=== PATIENT | female | born 2000 | race Caucasian/White ===

== ENCOUNTER 2021-11-01 06:26 | Inpatient (IN) ==
[2021-11-01] MEDS ORDERED: D5 1/2 NS 1,000 ML 1,000 ML IV ONE ×2 (06:38→19:10)
[2021-11-01] MEDS ORDERED: BETADINE SOLN ONE (06:38)
[2021-11-01] MEDS ORDERED: PITOCIN ONE (06:38)
[2021-11-01] MEDS ORDERED: D5 1/2 NS 1,000 mL + PITOCIN 20 UNITS/L IV 20 UNITS/1,000 ML BAG IV ONE (06:40)
[2021-11-01] MEDS ORDERED: D5 LR + PITOCIN 10 UNITS/L 10 UNITS/1,000 ML BAG IV ONE (06:40)
[2021-11-01] MEDS ORDERED: MORPHINE SULFATE INJ 2 MG INJ IVP PRN (06:48)
[2021-11-01] MEDS ORDERED: PITOCIN IVP ONE (06:48)
[2021-11-01] MEDS ORDERED: D5 LR + PITOCIN 10 UNITS/L 10 UNITS/1,000 ML BAG IV PRN (06:48)
[2021-11-01] MEDS ORDERED: REGLAN INJ 10 MG VIAL IVP PRN (06:48)
[2021-11-01] MEDS ORDERED: PHENERGAN INJ 25 MG IM PRN ×2 (06:48→21:28)
[2021-11-01] MEDS ORDERED: NUBAIN INJ 200 MG VIAL MULTIDOSE IVP PRN (06:48)
[2021-11-01] MEDS: D5 1/2 NS 1,000 ML 1,000 ML IV SCH ×2 (06:50→19:13)
--- NOTE | 2021-11-01 07:23 | DR.OB ---
OB Quick Note - Assessment/Plan Assessment/Plan: L&D 6:55am S-No complaint. O-Afebrile,VSS [id number] with good LTV, +accel, no decel. CTX=occasional, mild CVX=2cm/50%/0/VTX AROM with clear fluid. IUPC and FSE placed. A-IUP at 39 0/7 weeks for induction CHTN-stable off meds. P-Begin pitocin induction F/U preeclamptic labs Anticipate
[2021-11-01 07:26] LABS: URIC ACID 4.7 mg/dL (2.6-6.0)
[2021-11-01] MEDS ORDERED: LR 1,000 ML IV 1,000 ML IV ONE (11:44)
[2021-11-01] MEDS ORDERED: FENTANYL VIAL INJ 100 mcg ONE (11:53)
[2021-11-01] MEDS ORDERED: NAROPIN EPIDURAL 0.2% 100 ML ONE (11:54)
[2021-11-01] MEDS ORDERED: XYLOCAINE-MPF 1% ONE (18:19)
--- NOTE | 2021-11-01 21:28 | DR.OB ---
OB Quick Note - Assessment/Plan Assessment/Plan: Delivery Note [employer] 11/01/21 at 21:08 Patient complete and pushing. Head delivered over intact perineum. No nuchal cord. Nose and mouth bulb suctioned. Body delivered over intact perineum. Cord clamped x 2 and cut. handed to attendant. Cord sent for gases. Placenta delivered spontaneously / intact / 3 vessel cord. No CVX tears noted. A second degree mediolateral tear noted and repaired with 0-vicryl in usual fashion. Viable male infant, VTX/OA, wt=7'5" and 9/9, stable to NBN. Mother stable to RR. [id number].
[2021-11-01] MEDS: D5 1/2 NS 1,000 ML 1,000 ML with PITOCIN 20 UNITS IV SCH ×2 (22:16)
[2021-11-01] MEDS ORDERED: STADOL INJ ONE (22:28)
[2021-11-01] MEDS ORDERED: ADACEL or BOOSTRIX TDaP VACCINE IM ONE (22:54)
[2021-11-01] MEDS ORDERED: DERMOPLAST PAIN RELIEF SPRAY TOP PRN (22:54)
[2021-11-01] MEDS ORDERED: AMBIEN PO PRN (22:54)
[2021-11-01] MEDS ORDERED: MILK OF MAGNESIA PO PRN (22:54)
[2021-11-02] MEDS: MOTRIN TAB 800 MG PO PRN ×2 (00:30→14:05)
[2021-11-02 05:23] LABS: HEMATOCRIT 34.2 % (36.0-47.0)
[2021-11-02] MEDS: D5 1/2 NS 1,000 ML 1,000 ML with PITOCIN 20 UNITS IV SCH ×4 (05:27→16:12)
[2021-11-02] MEDS: PRENATAL PLUS PO SCH (08:40)
[2021-11-03] MEDS: D5 1/2 NS 1,000 ML 1,000 ML with PITOCIN 20 UNITS IV SCH ×4 (03:09→06:12)
[2021-11-03 07:28] VITALS: BP 114/72
[2021-11-03] MEDS: PRENATAL PLUS PO SCH (08:25)
[2021-11-03] MEDS: MOTRIN TAB 800 MG PO PRN (08:26)
[2021-11-03] MEDS ORDERED: ADACEL or BOOSTRIX TDaP VACCINE IM ONE (09:25)
[2021-11-03] MEDS ORDERED: BETADINE SOLN ONE (12:02)
== END 2021-11-03 12:00 | disposition home or self-care (01) | DRG 807 ==
LOC: LD 06:26 → MED/SURG 22:55
PROVIDERS: ADMIT Specialist; ATTEND Specialist
DX: Z3A.39 39 weeks gestation of pregnancy; O10.913 Unspecified pre-existing hypertension complicating pregnancy, third trimester; Z37.0 Single live birth; O70.1 Second degree perineal laceration during delivery

== ENCOUNTER 2023-07-08 06:16 | Inpatient (IN) ==
[2023-07-08] MEDS ORDERED: D5 LR 1,000 ML 0 ML IV ONE (06:30)
[2023-07-08] MEDS ORDERED: D5 1/2 NS 1,000 ML 1,000 ML IV ONE (06:32)
[2023-07-08] MEDS: D5 1/2 NS 1,000 ML 1,000 ML IV SCH (06:45)
--- NOTE | 2023-07-08 07:04 | DR.OB ---
OB QUICK NOTE Assessment/Plan (1) Active labor at term: Assessment/Plan: L&D 07/08/23 at 7:00am S-No complaint. O-Afebrile,VSS [id number] with good LTV, +accel, no decel. CTX=occasional, mild CVX=3cm/50%/-1/VTX AROM with clear fluid. IUPC and FSE placed. A-IUP at 39 0/7 weeks for induction P-Begin pitocin induction Anticipate
[2023-07-08] MEDS: OXYTOCIN 20 UNIT/1,000 ML-NS 20 UNIT/1,000 ML PLAST..BAG IV PRN (07:15)
[2023-07-08] MEDS ORDERED: REGLAN INJ 10 MG VIAL IVP PRN (07:27)
[2023-07-08] MEDS ORDERED: STADOL INJ IVP PRN (07:27)
[2023-07-08] MEDS ORDERED: NUBAIN INJ 20 MG AMP IVP PRN (07:27)
[2023-07-08] MEDS ORDERED: PITOCIN IVP ONE (07:27)
[2023-07-08] MEDS ORDERED: ZOFRAN INJ 4 MG VIAL IVP PRN (07:27)
[2023-07-08] MEDS: LR 1,000 ML IV 1,000 ML IV ONE (08:30)
[2023-07-08] MEDS: FENTANYL VIAL INJ 100 mcg ONE (09:05)
[2023-07-08] MEDS: NAROPIN EPIDURAL 0.2% 100 ML ONE (09:09)
[2023-07-08] MEDS ORDERED: MOTRIN TAB 800 MG PO PRN ×2 (11:49→12:22)
[2023-07-08] MEDS: BETADINE SOLN ONE (12:00)
[2023-07-08] MEDS ORDERED: OXYTOCIN 20 UNIT/1,000 ML-NS 20 UNIT/1,000 ML PLAST..BAG IV SCH ×2 (12:00→12:30)
[2023-07-08] MEDS: PITOCIN ONE (12:13)
--- NOTE | 2023-07-08 12:22 | DR.OB ---
OB QUICK NOTE Assessment/Plan (1) Active labor at term: Assessment/Plan: Delivery Note [employer] 07/08/23 at 12:09pm Patient complete and pushing. Head delivered over intact perineum. Nose and mouth bulb suctioned. No nuchal cord. Compound presentation with right hand to head. Body delivered over intact perineum. Cord clamped x 2 and cut. handed to attendant. Cord sent for gases. Placenta delivered spontaneously / intact / 3 vessel cord. No CVX / vaginal / perineal tears. Viable male infant delivered by , VTX/OA, wt=7'3" and 8/9, stable to NBN. Mother stable to RR. [id number].
[2023-07-08] MEDS ORDERED: DERMOPLAST PAIN RELIEF SPRAY TOP PRN (12:41)
[2023-07-08] MEDS ORDERED: AMBIEN PO PRN (12:41)
[2023-07-08] MEDS ORDERED: MILK OF MAGNESIA PO PRN (12:41)
[2023-07-08] MEDS: MOTRIN TAB 800 MG PO PRN (19:14)
[2023-07-09 05:31] LABS: HEMATOCRIT 33.7 % (36.0-47.0); HEMOGLOBIN 11.5 g/dL (12.0-16.0)
[2023-07-09] MEDS: PRENATAL PLUS PO SCH (09:18)
[2023-07-09] MEDS: ADACEL or BOOSTRIX TDaP VACCINE IM ONE (10:40)
[2023-07-09] MEDS ORDERED: ADACEL or BOOSTRIX TDaP VACCINE IM ONE (11:00)
[2023-07-09 15:17] VITALS: BP 109/67; PULSE 78; RESP 18; TEMP 98.4; O2SAT 98
== END 2023-07-09 15:55 | disposition home or self-care (01) | DRG 807 ==
LOC: LD 06:16 → MED/SURG 13:42
PROVIDERS: ADMIT Specialist; ATTEND Specialist
DX: Z37.0 Single live birth; Z3A.39 39 weeks gestation of pregnancy; O80 Encounter for full-term uncomplicated delivery